=== PATIENT | male | born 1980 | race Two or more races ===

== ENCOUNTER 2022-02-02 08:42 | Emergency (ER) | payer OTHER ==
[~2022-02-02] VITALS: Ht 162.6 cm; Wt 97.5 kg
[2022-02-02] MEDS ORDERED: INTESTINEX680 M1 PO (16:58)
[2022-02-02] MEDS ORDERED: LEVSIN/SL0.125 MG PO (16:58)
[2022-02-02] MEDS ORDERED: MESALAMINE800 MG PO (16:58)
== END 2022-02-02 17:48 ==
LOC: ER 08:42
DX: K52.9 Noninfective gastroenteritis and colitis, unspecified (principal); R10.31 Right lower quadrant pain; Z20.822 Contact with and (suspected) exposure to COVID-19; Z91.013 Allergy to seafood
CPT/HCPCS: 36415; 74177; Q9965

== ENCOUNTER 2024-08-29 07:44 | Emergency (ER) | payer OTHER ==
[~2024-08-29] VITALS: Ht 162.6 cm; Wt 90.7 kg
[~2024-08-29 07:44] MED LIST: INTESTINEX680 M1 PO; LEVSIN/SL0.125 MG PO; MESALAMINE800 MG PO
[2024-08-29] MEDS ORDERED: KETOROLAC TROMETHAMINE 60 MG VIAL IM STA (09:21)
== END 2024-08-29 11:43 | disposition home or self-care (01) ==
LOC: ER 07:44
DX: S40.011A Contusion of right shoulder, initial encounter (principal); S70.01XA Contusion of right hip, initial encounter; W18.39XA Other fall on same level, initial encounter; Y93.89 Activity, other specified; Y92.89 Other specified places as the place of occurrence of the external cause; Z91.013 Allergy to seafood